=== PATIENT | female | born 1985 | race Caucasian/White ===

== ENCOUNTER 2018-03-24 12:48 | Emergency (ER) | payer BC, OTHER ==
--- OUTSIDE RECORDS SUMMARY | 2018-03-24 12:53 | XMS REPORT ---
:1985 External Reference #:[id number] Author Organization [facility] Address [address], [address] [place] [address] Phone [phone] Care Team Providers Name Role Phone Lyndsey Rush MD Primary Care Physician Unavailable Payers Type Date Identification Numbers Payment Provider Subscriber Commercial Policy Number: [id number] [employer] Renee Holcomb PayID: [id number] [address] [place] [address] Problems Date Description Provider Status Onset: 03/02/2018 von Willebrand disorder Lyndsey Rush MD Active Onset: 03/02/2018 Obesity Lyndsey Rush MD Active Onset: 03/02/2018 Anxiety state Lyndsey Rush MD Active Onset: 03/02/2018 Moderate recurrent major depression Lyndsey Rush MD Active Family History Date Family Member(s) Problem(s) Comments Father No Current Problems Mother Hypertension Social History Type Date Description Comments Marital Status Work Status Unemployed ETOH Use Denies alcohol use Smoking Patient has never smoked Recreational Drug Use Never Used Drugs Daily Caffeine Patient consumes minimal amounts of caffeine Allergies, Adverse Reactions, Alerts Date Description Reaction Status Severity Comments 03/02/2018 Penicillin active Family members with allergy 03/02/2018 Steri-Strips active 03/02/2018 Latex active Medications Medication Date Status Form Strength Qnty SIG Indications Ordering Provider Bupropion HCL ER 03/02 Active Tablets 150mg 30tab 1 by mouth F33.1 Lyndsey (XL) ER 24HR s every day x Adri, 2 weeks then increase to 2 tabs daily Vitamin 00 Active Tablets 1 by mouth Unknown /0000 every day Medroxyprogesterone Active Tablets 10mg take 1 Unknown Acetate /0000 tablet by mouth daily for 10 days prn amenorrhoea . Vital Signs Date Vital Result Comment 03/02/2018 BP Systolic Sitting Right Arm 133 mmHg BP Diastolic Sitting Right Arm 89 mmHg Body Temperature 98.2 F Heart Rate 85 /min Respiratory Rate 16 /min Height 67 inches 5'7" Weight 286.00 lb BMI (Body Mass Index) 44.8 kg/m2 BSA (Body Surface Area) 2.35 m2 [place] body weight in kilograms 61 O2 % BldC Oximetry 99 % Results Description No Information Procedures Description No Information Plan of Care Future Appointment(s):04/12/2018 8:45 am - [facility] App[facility] Aqhkja6904/21 11:20 am - Lyndsey Rush MD at [facility] Cljjij6003/02/2018 - Lyndsey Rush MDF33.1 Major depressive disorder, recurrent, moderateNew Medication: Bupropion HCL ER (XL) 150 mgNew Labs:CBS W/Automated DiffComprehensive Metabolic PanelComments:-PHQ9 done-Advised counseling for CBT-Sertraline was not well tolerated-Concerned about weight gain with SSRI therefore will try wellbutyrin -increase from 150mg daily x 2 weeks increase to 2 tabs daily - followup in 6 fehtsP78.9 Anxiety disorder, unspecifiedNew Labs:CBS W/Automated DiffComprehensive Metabolic PanelComments:-trial of bupropion XL 150mg daily-&gt ;if tolerated increase to 2 tabs daily-Followup in 6 weeks-Given list of counselors for CBT-Try meditation and yfhuvelppxoS98.09 Other obesity due to excess caloriesNew Labs:LDL Cholesterol ProfileThyroid Stim HormoneFree O6Phxphyj D,25-HydroxyComments:-Encouraged exercise, healthy eating-Avoiding SSRIs due to concern for weight gain-Check baseline blood workD68.0 Von Willebrand's diseaseNew Labs:CBS W/Automated DiffComprehensive Metabolic PanelLDL Cholesterol ProfileComments:-followup with Dr. Garcesments:fasting blood work in 4 weeksfollowup in 6 weeksFollow up:fasting blood work prior f/u in 6 weeks
[2018-03-24 12:54] VITALS: BP 160/85
--- NOTE | 2018-03-24 12:55 | UC ---
Skin Complaint HPI - HPI Summary HPI Summary: 32 yo female presents with diffuse hives since yesterday. She tells me that 2 nights ago she ate a leftover gumbo that her ordered from [employer]. Overnight she developed diffuse hives and itching. She took oral benadryl, which did not help. Her hives have persisted and she feels her throat might be scratchy today - thus prompting her visit to . She denies fever, chills, difficulty swallow/breathing, SOB, or chest pain. - History of Current Complaint Chief Complaint: UCAllergicReaction Time Seen by Provider: 03/24/18 12:54 Stated Complaint: ALLERGIC REACTION Hx Obtained From: Patient Hx Last Menstrual Period: 03/14/18 Onset/Duration: Sudden Onset Onset Severity: Moderate Current Severity: Moderate Pain Intensity: 7 Pain Scale Used: 0-10 Numeric - Allergy/Home Medications Allergies/Adverse Reactions: Allergies Allergy/AdvReac Type Severity Reaction Status Date / Time latex Allergy Rash Verified 03/24/18 12:55 Penicillins Allergy Rash Verified 03/24/18 12:55 Home Medications: Home Medications buPROPion HCl [Wellbutrin Sr] 100 mg PO DAILY 03/24/18 [History Confirmed ] Review of Systems Constitutional: Negative Skin: Other - Diffuse hives ENT: Negative Respiratory: Negative Cardiovascular: Negative Gastrointestinal: Negative Neurovascular: Negative Neurological: Negative Psychological: Negative All Other Systems Reviewed And Are Negative: Yes PMH/Surg Hx/FS Hx/Imm Hx Psychological History: Anxiety, Depression - Surgical History Surgical History: Yes Surgery Procedure, Year, and Place: D&C 03/2013, tonsillectomy as a child, d&c to remove polups and a tumur to ovary and endometriosis - Family History Known Family History: Positive: Hypertension - Social History Occupation: Employed Full-time Lives: With Family Alcohol Use: None Substance Use Type: None Smoking Status (MU): Never Smoked Tobacco Physical Exam - Summary Physical Exam Summary: GENERAL: NAD. WDWN. No pain distress. SKIN: Diffuse urticaria on abdomen, chest, and b/l arms. No open wounds, streaking, or drainage. HEENT: Head: AT/NC Eyes: EOM intact. Conjunctiva clear without inflammation or discharge. Throat: Posterior oropharynx without exudates, erythema, or tonsillar enlargement. Uvula midline. NECK: Supple. No edema. CHEST: CTAB. No r/r/w. No accessory muscle use. Breathing comfortably and in no distress. CV: RRR. Without m/r/g. Pulses intact. Cap refill <2seconds NEURO: Alert. PSYCH: Age appropriate behavior. Triage Information Reviewed: Yes Vital Signs: Initial Vital Signs Temp 98 F 03/24/18 12:52 Pulse 95 03/24/18 12:52 Resp 16 03/24/18 12:52 BP 160/85 03/24/18 12:52 Pulse Ox 98 03/24/18 12:52 Vital Signs Reviewed: Yes Course/Dx - Course Course Of Treatment: Urticaria due to allergic reaction. 125mg solumedrol given in clinic. Rx for prednisone and f/u or go to ED if symptoms persist or worsen. - Diagnoses Provider Diagnoses: urticaria Discharge - Sign-Out/Discharge Documenting (check all that apply): Patient Departure All imaging exams completed and their final reports reviewed: No Studies - Discharge Plan Condition: Stable Disposition: HOME Prescriptions: diPHENhydraMINE 2% CREAM(NF) [Benadryl 2% CREAM (NF)] 1 applic TOPICAL BID PRN # 1 tube PRN Reason: Itching Hydrocortisone 1% CREAM(NF) 1 applic TOPICAL DAILY PRN #1 tube PRN Reason: Itching predniSONE TAB* [Deltasone 20 MG TAB*] 20 mg PO DAILY #12 tab Patient Education Materials: Urticaria (ED), General Allergic Reaction (ED) Referrals: No Primary Care Phys,NOPCP [Primary Care Provider] - Additional Instructions: If you develop a fever, shortness of breath, chest pain, new or worsening symptoms - please call your PCP or go to the ED. Your blood pressure was high at todays visit. Please see your primary provider within 4 weeks for recheck and re-evaluation. 1) If your symptoms worsen or if you develop shortness of breath, chest pain, face swelling, eye swelling, or difficulty breathing - please call 911 or go to the ER 2) Do not use the hydrocortisone cream on your face or genital region 3) Please start the PREDNISONE tablets tomorrow taking 60mg for 2 days then 40mg for 2 days then 20mg for 2 days - Billing Disposition and Condition Condition: STABLE Disposition: Home
[2018-03-24] MEDS ORDERED: methylPREDNISolone 125 MG* 2 ML VIAL IM ONE (13:05)
== END 2018-03-24 13:28 | disposition home or self-care (01) ==
LOC: UCEAST 12:48
DX: L50.9 Urticaria, unspecified (principal); Z88.0 Allergy status to penicillin; Z91.040 Latex allergy status
CPT/HCPCS: 96372; 99212; G0463; J2930

== ENCOUNTER → 2018-09-02 03:28 | Emergency (ER) | payer OTHER ==
[~2018-09-02 03:28] MED LIST: Lactated Ringers 1000 ML Bag* 1,000 ML IV SCH; Metoclopramide IV* 5 MG/ML 2 ML VIAL IV SLOW PU ONE
--- NOTE | 2018-09-02 04:15 | ED ---
GI/ HPI - HPI Summary HPI Summary: This patient is a 32 year old female presenting to [facility] accompanied by with a chief complaint of nausea and vomiting since 2129 yesterday. Patient states that she thinks that it may be something that she ate. Patient made corned beef, which also caused her to be sick. However, her husbands symptoms resolved quickly while hers has persisted to the point where she cannot sleep. Patient is 23-24 weeks and after calling her OBGYN, was instructed to come to the ED. The pain is rated 2/10 in severity. Symptoms aggravated by nothing. Symptoms alleviated by nothing. Patient denies diarrhea - History of Current Complaint Chief Complaint: EDNauseaVomitDiarrh Time Seen by Provider: 09/02/18 04:03 Stated Complaint: VOMITING/23 WEEKS PREG Hx Obtained From: Patient Hx Last Menstrual Period: 03/14/18 Onset/Duration: Started Hours Ago, Still Present Timing: Constant Severity: Moderate Pain Intensity: 2 Location of Pain: Diffuse Associated Signs and Symptoms: Positive: Nausea. Negative: Diarrhea Aggravating Factor(s): Nothing Alleviating Factor(s): Nothing - Allergy/Home Medications Allergies/Adverse Reactions: Allergies Allergy/AdvReac Type Severity Reaction Status Date / Time latex Allergy Rash Verified 09/02/18 03:31 Penicillins Allergy Rash Verified 09/02/18 03:31 Home Medications: Home Medications Pnv No.95/Ferrous Fum/Folic AC [ Vitamin & Minera 28-0.8 mg] 1 tab PO DAILY 09/02/18 [History Confirmed 09/02/18] PMH/Surg Hx/FS Hx/Imm Hx Previously Healthy: No Endocrine/Hematology History: Reports: Other Endocrine/Hematological Disorders - Metabolic syndrome Denies: Hx Diabetes, Hx Thyroid Disease Cardiovascular History: Denies: Hx Hypertension Respiratory History: Reports: Hx Asthma - WITH SICKNESS Denies: Hx Chronic Obstructive Pulmonary Disease (COPD) GI History: Denies: Hx Ulcer Neurological History: Reports: Hx Headaches - hemiplegic headaches, Hx Migraine , Other Neuro Impairments/Disorders - HX OF MIGRAINES - Surgical History Surgery Procedure, Year, and Place: D&C 03/2013, tonsillectomy as a child, d&c to remove polups and a tumur to ovary and endometriosis Infectious Disease History: No Infectious Disease History: Denies: Hx Hepatitis, Hx Human Immunodeficiency Virus (HIV), Traveled Outside the [place] in Last 30 Days - Family History Known Family History: Positive: Hypertension - Social History Lives: With Family Alcohol Use: None Hx Substance Use: No Substance Use Type: Reports: None Hx Tobacco Use: No Smoking Status (MU): Never Smoked Tobacco Review of Systems Negative: Fever Positive: Vomiting, Nausea. Negative: Diarrhea All Other Systems Reviewed And Are Negative: Yes Physical Exam - Summary Physical Exam Summary: VITAL SIGNS: Reviewed. GENERAL: Patient is a well-developed and nourished female who is lying comfortable in the stretcher. Patient is not in any acute respiratory distress. HEAD AND FACE: No signs of trauma. No ecchymosis, hematomas or skull depressions. No sinus tenderness. EYES: PERRLA, EOMI x 2, No injected conjunctiva, no nystagmus. EARS: Hearing grossly intact. Ear canals and tympanic membranes are within normal limits. MOUTH: Oropharynx within normal limits. NECK: Supple, trachea is midline, no adenopathy, no JVD, no carotid bruit, no c- spine tenderness, neck with full ROM. CHEST: Symmetric, no tenderness at palpation LUNGS: Clear to auscultation bilaterally. No wheezing or crackles. CVS: Regular rate and rhythm, S1 and S2 present, no murmurs or gallops appreciated. ABDOMEN: Soft, non-tender. Bowel sounds are normal. Fundal level is 24 weeks. EXTREMITIES: FROM in all major joints, no edema, no cyanosis or clubbing. NEURO: Alert and oriented x 3. No acute neurological deficits. Speech is normal and follows commands. SKIN: Dry and warm Triage Information Reviewed: Yes Vital Signs On Initial Exam: Initial Vitals Temp Pulse Resp BP Pulse Ox 97.8 F 103 18 136/91 98 09/02/18 03:29 09/02/18 03:29 09/02/18 03:29 09/02/18 03:29 09/02/18 03:29 Vital Signs Reviewed: Yes Diagnostics - Vital Signs Vital Signs Temp Pulse Resp BP Pulse Ox 09/02/18 03:29 97.8 F 103 18 136/91 98 - Laboratory Result Diagrams: 09/02/18 04:27 09/02/18 04:28 Lab Statement: Any lab studies that have been ordered have been reviewed, and results considered in the medical decision making process. Re-Evaluation - Re-Evaluation First Eval Re-Evaluation Time: 06:17 Change: Improved Comment: Patient feels much better and is ready to be discharged. GIGU Course/Dx - Course Course Of Treatment: This patient is a 32 year old female presenting to [facility] accompanied by with a chief complaint of nausea and vomiting since 2129 yesterday. Patient states that she thinks that it may be something that she ate. Patient made corned beef, which also caused her to be sick. However , her husbands symptoms resolved quickly while hers has persisted to the point where she cannot sleep. Patient is 23-24 weeks and after calling her OBGYN, was instructed to come to the ED. Bloodwork Obtained. In the ED course the patient was given Lactated Ringer bolus IV, Paolo. Re-eval at 0617, patient is feeling better. Patient will be discharged with a dx of nausea and vomiting while . Patient is advised to follow up with PCP in 2 days. The patient is agreeable with this plan. - Diagnoses Provider Diagnoses: Nausea and vomiting during Discharge - Sign-Out/Discharge Documenting (check all that apply): Patient Departure Patient Received Moderate/Deep Sedation with Procedure: No - Discharge Plan Condition: Stable Disposition: HOME Prescriptions: Metoclopramide TAB* [Reglan TAB*] 10 mg PO Q6H PRN #20 tab PRN Reason: Nausea/Vomiting Patient Education Materials: Nausea and Vomiting in (ED) Referrals: No Primary Care Phys,NOPCP [Primary Care Provider] - 2 Days Additional Instructions: Return to ED for any new or worsening symptoms. - Billing Disposition and Condition Condition: STABLE Disposition: Home - Attestation Statements Document Initiated by Isaac: Yes Documenting Scribe: Justin Esquivel Provider For Whom Isaac is Documenting (Include Credential): Matt Gonzales MD Scribe Attestation: Justin Cummings, scribed for Matt Gonzales MD on 09/02/18 at 0643. Scribe Documentation Reviewed: Yes Provider Attestation: The documentation as recorded by the Justin currie accurately reflects the service I personally performed and the decisions made by me, Matt Gonzales MD Status of Scribe Document: Viewed
[2018-09-02 04:36] LABS: ABS Basophils 0 10^3/ul (0-0.2); ABS Eosinophils 0 10^3/ul (0-0.6); ABS Lymphocytes 0.8 10^3/ul (1.0-4.8); ABS Monocytes 0.6 10^3/ul (0-0.8); ABS Neutrophils 11.3 10^3/ul (1.5-7.7); ABS Nucleated RBC 0 10^3/ul; Eosinophil % 0.1 %; Hematocrit 39 % (35-47); Hemoglobin 12.9 g/dl (12.0-16.0); Lymphocyte % 6.6 %; Mean Corpuscular HGB Conc 33 g/dl (31-36); Mean Corpuscular Hemoglobin 28 pg (27-31); Mean Corpuscular Volume 86 fL (80-97); Mean Platelet Volume 6.7 fL (7.4-10.4); Nucleated Red Blood Cells % 0; Platelet Count 332 10^3/ul (150-450); Red Blood Count 4.56 10^6/ul (4.00-5.40); Red Cell Distribution Width 15 % (10.5-15); White Blood Count 12.7 10^3/ul (3.5-10.8)
[2018-09-02 04:52] LABS: Albumin 3.6 g/dL (3.2-5.2); Albumin/Globulin Ratio 1.1 (1-3); BUN/Creatinine Ratio 28.1 (8-20); C Reactive Protein 27.51 mg/L (<8.01); Calcium 8.9 mg/dL (8.6-10.3); EGFR African American 130.1 (>60); EGFR Non-African American 107.5 (>60); Globulin 3.2 g/dL (2-4); Total Bilirubin 0.5 mg/dL (0.2-1.0); Total Protein 6.8 g/dL (6.4-8.9)
[2018-09-02 06:26] VITALS: BP 144/83
== END | disposition home or self-care (01) ==
LOC: ED 03:28
DX: O21.2 Late vomiting of pregnancy (principal); Z3A.23 23 weeks gestation of pregnancy; Z88.0 Allergy status to penicillin; Z91.040 Latex allergy status
CPT/HCPCS: 36415; 80053; 82150; 83690; 85025; 86140; 96374; 99283; J2765

== ENCOUNTER 2018-12-22 12:04 | Inpatient (IN) | payer OTHER ==
[2018-12-22] MEDS ORDERED: Buffered Lidocaine 1% SYRIN* 1 ML/SYRINGE INTRADERM ONE (12:57)
[2018-12-22] MEDS ORDERED: Lactated Ringers 1000 ML Bag* 1,000 ML IV SCH ×2 (13:00→23:45)
[2018-12-22 13:36] LABS: ABS Basophils 0.1 10^3/ul (0-0.2); ABS Lymphocytes 2.3 10^3/ul (1.0-4.8); ABS Monocytes 0.8 10^3/ul (0-0.8); ABS Neutrophils 5.8 10^3/ul (1.5-7.7); Eosinophil % 0.4 %; Hematocrit 36 % (35-47); Hemoglobin 12.2 g/dL (12.0-16.0); Lymphocyte % 25.8 %; Mean Corpuscular HGB Conc 34 g/dL (31-36); Mean Corpuscular Hemoglobin 29 pg (27-31); Mean Corpuscular Volume 85 fL (80-97); Mean Platelet Volume 7.9 fL (7.4-10.4); Platelet Count 298 10^3/uL (150-450); Red Blood Count 4.21 10^6 /uL (3.70-4.87); Red Cell Distribution Width 15 % (10-15); White Blood Count 8.9 10^3/uL (3.5-10.8)
[2018-12-22] MEDS: Lactated Ringers 1000 ML Bag* 1,000 ML IV ONE (13:48)
[2018-12-22] MEDS: Penicillin G Potassium IV* 5,000,000 UNITS in NS 0.9% 100 ML* 100 ML IVPB ONE ×2 (13:55→13:56)
[2018-12-22 14:41] LABS: Albumin 3.2 g/dL (3.2-5.2); Calcium 8.9 mg/dL (8.6-10.3); Potassium 4.3 mmol/L (3.5-5.0); Total Bilirubin 0.4 mg/dL (0.2-1.0)
[2018-12-22 14:47] LABS: BUN/Creatinine Ratio 18.3 (8-20); EGFR African American 114.7 (>60); EGFR Non-African American 94.8 (>60); Globulin 3.1 g/dL (2-4); Total Protein 6.3 g/dL (6.4-8.9); Uric Acid 4.7 mg/dL (2.3-6.6)
--- NOTE | 2018-12-22 17:33 | HP ---
General Information - Reason for Visit 33yo G1 at 39+0 presents for induction of labor for multiple comorbidities including GDMA1, CHTN (no meds), and morbid obesity (BMI >45). Pt without complaints, feels well. Cx yesterday 2cm/70% and membranes swept. - General Information Maternal Age: 33 Grav: 1 Para: 0 SAB: 0 IEA: 0 Estimated Due Date: 12/29/18 Gestational Age in Weeks/Days: 39+0 Maternal Blood Type and Rh: O Positive - Results this Serology/RPR Result: Non-Reactive Rubella Result: Non-Immune HBsAg Result: Negative HIV Result: Negative GBS Culture Result: Positive Past Medical History Delivery History: See Records - G1 Pertinent Past Medical History: See Records - morbid obesity, GDMA1, CHTN, poss von Willebrand's (normal labs recently), endometriosis Pertinent Past Surgical History: See Records - tonsils, laparoscopy, hysteroscopy - Antepartal Records Antepartal Records: Reviewed, Complicated by: - see above Review of Systems Constitutional: Comfortable CV Complaint: No Respiratory: Shortness of Breath: No Gastrointestinal: No Nausea/Vomiting Genitourinary: Bleeding - scant since exam, No Dysuria, No Leaking Fluid Musculoskeletal: Contractions - irreg, mild Movement: Normal Exam Allergies/Adverse Reactions: Allergies latex Allergy (Verified 09/02/18 03:31) Rash mild HTN, afebrile Lab Values - Entire Visit: Laboratory Tests 12/22/18 12/22/18 12/22/18 13:20 13:20 13:55 WBC 8.9 RBC 4.21 Hgb 12.2 Hct 36 MCV 85 MCH 29 MCHC 34 RDW 15 Plt Count 298 MPV 7.9 Neut % (Auto) 64.7 Lymph % (Auto) 25.8 Shelby % (Auto) 8.5 Eos % (Auto) 0.4 Baso % (Auto) 0.6 Absolute Neuts (auto) 5.8 Absolute Lymphs (auto) 2.3 Absolute Monos (auto) 0.8 Absolute Eos (auto) 0.0 Absolute Basos (auto) 0.1 Absolute Nucleated RBC 0.0 Nucleated RBC % 0.0 Sodium 136 Potassium 4.3 Chloride 106 Carbon Dioxide 20 L Anion Gap 10 BUN 13 Creatinine 0.71 Est GFR ( Amer) 114.7 Est GFR (Non-Af Amer) 94.8 BUN/Creatinine Ratio 18.3 Glucose 97 Uric Acid 4.7 Calcium 8.9 Total Bilirubin 0.40 AST 12 L ALT 7 Alkaline Phosphatase 104 Total Protein 6.3 L Albumin 3.2 Globulin 3.1 Albumin/Globulin Ratio 1.0 Blood Type O Positive Antibody Screen Negative - Measurements Height: 5 ft 7 in Weight: 319 lb Weight in lbs: 319.925444 Body Mass Index (BMI): 49.9 Pre- Weight: 295 lb Weight Gained This : 24 lbs and 0 ozs - Exam Breast: Breast Exam Deferred Heart: Normal Rhythm/Heart Sounds HEENT: No Significant Findings Lungs: Clear Bilaterally Rectal: Rectal Exam Deferred - Abdominal Exam Abdomen Exam: Non-Tender - , very obese - Ultrasound/Biophysical Profile Ultrasound Status: Not Done Targeted Exam Findings Estimated Weight: 8lb 4oz Cervical Exam: 3cm Effacement: 60% Station: -2 Presenting Part: Vertex Membrane Status: Intact EFM Findings - External Monitor Findings Baseline Heart Rate: 140 External Monitor Findings: Accelerations Present, No Pattern of Variable or Late Decelerations, Variability Moderate, Baseline Stable Contractions: Irregular, Mild Contraction Frequency: About Q3-6 Assessment/Plan - Assessment 39 wks with CHTN (mild), GDMA1, morbid obesity. Growth ultrasounds have showed fetus large for dates, last week 78%ile (7lb 15oz ). Cervix getting favorable already. Will plan ROM after antibiotics have been started for GBS. Pitocin as needed. - Obstetrical Risk Factors Obstetrical Risk Factors: GBS Positive, Obesity, Chronic Hypertension, Gestational Diabetes - Plan Plan: Induction, Admit - Anticipate Vaginal Delivery - Date/Time of Admission Date of Admission: 12/22/18 Time of Admission: 12:30
[2018-12-22] MEDS: Penicillin G Potassium IV* 2,500,000 UNITS in NS 0.9% 100 ML* 100 ML IVPB SCH ×2 (17:58→22:00)
[2018-12-22] MEDS ORDERED: OBEPIDURAL* 250 ML EPIDURAL ONE (20:52)
[2018-12-22] MEDS ORDERED: Lactated Ringers 1000 ML Bag* 500 ML IV PRN ×2 (23:36)
[2018-12-22] MEDS ORDERED: Famotidine TAB* 20 MG PO PRN (23:36)
[2018-12-22] MEDS ORDERED: Sodium Citrate/Citric Acid* 15 ML UDC PO PRN (23:36)
[2018-12-22] MEDS ORDERED: Phenylephrine 40 MCG/ML SYRINGE IV PUSH PRN ×2 (23:36)
[2018-12-22] MEDS ORDERED: Lactated Ringers 1000 ML Bag* 1,000 ML IV ONE (23:36)
[2018-12-22] MEDS ORDERED: OBEPIDURAL* 250 ML EPIDURAL SCH (23:45)
[2018-12-23] MEDS ORDERED: Oxytocin in LR* 20 UNITS/1,000 ML BAG IVPB SCH (01:00)
[2018-12-23] MEDS: Penicillin G Potassium IV* 2,500,000 UNITS in NS 0.9% 100 ML* 100 ML IVPB SCH ×2 (02:00→05:48)
[2018-12-23] MEDS ORDERED: Labetalol IV* 5 MG/ML 20 ML VIAL IV PUSH ONE (02:52)
[2018-12-23] MEDS ORDERED: ceFOXitin 2 GM IVPREMIX* 2 GM/50 ML BAG IVPB ONE (06:52)
[2018-12-23] MEDS ORDERED: ceFOXitin 2 GM IVPREMIX* 2 GM/50 ML BAG ONE (06:56)
--- NOTE | 2018-12-23 06:58 | PN ---
Progress Note - Progress Note Date of Service: 12/23/18 Note: Pt reached fully dilated at about 0330, started pushing about an hour later. She has since pushed with very good effort, but reports exhaustion. She had just reached about +2 station. We discussed the option of vacuum with possible risk of shoulder dystocia and failure to deliver. After discussion, pt reports she is unable to push any longer and declines vacuum, preferring C/S at this time. We discussed delivery at length. We reviewed the risks including hemorrhage, transfusion, infection, organ injury , anesthesia complications, DVT, and even . All questions were discussed and consent signed.
[2018-12-23] MEDS ORDERED: Lidocaine 2% EPI 1:200000 MPF*10-20 ML VIAL ONE (07:15)
[2018-12-23] MEDS ORDERED: OXYTOCIN* 10 UNITS/ML 1 ML VIAL ONE (07:50)
[2018-12-23] MEDS ORDERED: Ketorolac INJ* 30 MG/ML 1 ML VIAL ONE (08:07)
[2018-12-23] MEDS ORDERED: Ondansetron INJ* 2 MG/ML VIAL ONE (08:07)
[2018-12-23] MEDS ORDERED: Phenylephrine 40 MCG/ML SYRINGE ONE (08:07)
[2018-12-23] MEDS ORDERED: Morphine PF AMP (0.5MG/ML)* 5 MG/10 ML AMP ONE (08:13)
[2018-12-23] MEDS ORDERED: Levalbuterol 0.63MG/3ML NEB* UNIT OF USE INH PRN (08:24)
[2018-12-23] MEDS ORDERED: Scopolamine 1.5 mg* PATCH TRANSDERM PRN (08:24)
[2018-12-23] MEDS ORDERED: fentaNYL* 50 MCG/ML 2 ML VIAL (100 MCG VIAL) IV PRN (08:24)
[2018-12-23] MEDS ORDERED: Naloxone* 0.4 MG/ML 1 ML VIAL IV PRN ×2 (08:24→08:26)
[2018-12-23] MEDS ORDERED: diPHENhydraMINE IV* 50 MG/ML 1 ml VIAL (BENADRYL) IV PRN (08:26)
[2018-12-23] MEDS ORDERED: DiMENhydriNATE IV* 50 MG/ML VIAL IV PUSH PRN (08:26)
[2018-12-23] MEDS ORDERED: Ondansetron INJ* 2 MG/ML VIAL IV PRN (08:26)
[2018-12-23] MEDS ORDERED: Nalbuphine* 10 MG/ML 1 ML VIAL IV PRN (08:26)
[2018-12-23] MEDS ORDERED: PROCHLORPERAZINE INJ 5 MG/ML 2 ML VIAL IV PRN (08:26)
[2018-12-23] MEDS ORDERED: HYDROcodone/ACETAMIN 5-325 MG* 1 TAB PO PRN ×2 (08:26)
[2018-12-23] MEDS ORDERED: Witch Hazel PAD* JAR TOPICAL PRN (09:03)
--- NOTE | 2018-12-23 09:42 | OP ---
DATE OF OPERATION: 12/23/18 - ROOM #104 DATE OF : 85 SURGEON: Brad Benitez MD. STUDENT FINANCIAL AID MANAGER: Kelton Whitney MD. ANESTHESIOLOGIST: Dr. Morelos. ANESTHESIA: Epidural. PRE-OP DIAGNOSES: A 39-week gestation with chronic hypertension, gestational diabetes mellitus, morbid obesity, and arrest of descent. POST-OP DIAGNOSES: A 39-week gestation with chronic hypertension, gestational diabetes mellitus, morbid obesity, arrest of descent, and macrosomia. OPERATIVE PROCEDURE: Primary low transverse section. ESTIMATED BLOOD LOSS: 800 cc. URINE OUTPUT: 200 cc. IV FLUIDS: 1200 cc lactated Ringer's. INDICATIONS: This patient is a 33-year-old 1, para 0 who was admitted at 39 weeks gestation for induction of labor due to multiple complications including morbid obesity, gestational diabetes, and chronic hypertension. The patient actually presented with signs of early labor and at about 3 cm dilated. She was ruptured productive of clear fluid. She then progressed fairly well to about 6 cm, at which point she required an IUPC as she was not having cervical change. Additional Pitocin made the contractions adequate and she progressed to completely dilated. She pushed for over 2 hours , at which point, the presenting head reached about +2 station; however, the patient was extremely exhausted and declined any operative assistance. This was considered very reasonable considering the was known to be fairly large and there could be the potential for severe shoulder dystocia. She was extensively counseled for the surgery and consent was signed. FINDINGS: Normal-appearing uterus, fallopian tubes, and ovaries. Delivery was productive of a 10-pound 8-ounce male infant with Apgars of 9 and 9. Time of delivery was 8:01 a.m. An Jamar retractor was used for the procedure. COMPLICATIONS: None. DESCRIPTION OF PROCEDURE: The risks, benefits, and alternatives were described to the patient and informed consent was obtained. The patient was taken to the operating room with IV running where epidural anesthesia was induced and found to be adequate. The patient was prepped and draped in the normal sterile fashion in the dorsal supine position with leftward tilt. A Pfannenstiel skin incision was made with a scalpel and this was carried down to the underlying fascia sharply. The fascia was then scored in the midline with the scalpel. The incision was extended using Cleveland scissors. The rectus muscles were dissected off the rectus fascia using blunt and sharp dissection. The rectus muscles were in the midline bluntly. The peritoneum was also entered bluntly. A bladder blade was placed. A bladder flap was created sharply using Metzenbaum scissors. A low transverse uterine incision was made with the scalpel. This was carried down to the amniotic cavity which was productive of clear fluid. The incision was extended with blunt traction. The head was elevated to the level of the incision without difficulty and delivered through the incision. With fundal pressure, the shoulders and body delivered without difficulty. The had an excellent tone and cried immediately on delivery. The cord was doubly clamped and cut. The infant was then handed to the awaiting slack cooper. Cord blood was collected. The placenta then delivered with manual extraction. The uterus was then exteriorized and cleared of all clots and debris. Uterine incision was reapproximated using 0 Polysorb in a running-locked fashion. A second layer of imbricating sutures of 0 Polysorb was also placed with good hemostasis. The posterior cul-de-sac was irrigated with saline. The uterus was then returned to the abdomen, and the incision was reinspected and noted to be hemostatic. The peritoneum was closed with 2-0 chromic in a running fashion. The fascia was closed with 0 Polysorb in a running fashion. Subcutaneous tissues were reapproximated using 2-0 chromic and interrupted sutures. The skin was then closed with 4-0 Monocryl in a subcuticular stitch. Mastisol and Steri-Strips were placed over the incision which was then covered with a sterile bandage. The patient tolerated the procedure well. Sponge, lap, and needle counts were correct x2. [id number]/[facility] #: [id number] [facility]
[2018-12-23] MEDS ORDERED: Lactated Ringers 1000 ML Bag* 1,000 ML IV SCH (10:00)
[2018-12-23] MEDS ORDERED: Acetaminophen TAB* 325 MG PO SCH (11:00)
[2018-12-23] MEDS: Docusate CAP* 100 MG PO SCH ×2 (14:42→21:50)
[2018-12-23] MEDS: Simethicone TAB* 80 MG TAB.CHEW PO SCH ×2 (18:43→21:50)
--- NOTE | 2018-12-23 20:45 | PTEDU ---
Patient Name: RICHY WHITLOCK RICHY WHITLOCK selected video: BBOB: Nurturing Your Gorgeous &Growing Baby by to view o n 12/23/2018 at 8:44:42 PM [id number]
[2018-12-24] MEDS ORDERED: oxyCODONE/Acetamin 5/325 MG* TAB PO PRN ×2 (00:22)
[2018-12-24] MEDS: Acetaminophen TAB* 325 MG PO PRN ×2 (02:23→18:27)
[2018-12-24 06:23] LABS: ABS Lymphocytes 3.5 10^3/ul (1.0-4.8); ABS Neutrophils 8.4 10^3/ul (1.5-7.7); Eosinophil % 0.3 %; Hematocrit 30 % (35-47); Lymphocyte % 27.2 %; Mean Corpuscular HGB Conc 33 g/dL (31-36); Mean Corpuscular Hemoglobin 29 pg (27-31); Mean Corpuscular Volume 87 fL (80-97); Mean Platelet Volume 7.5 fL (7.4-10.4); Platelet Count 253 10^3/uL (150-450); Red Blood Count 3.45 10^6 /uL (3.70-4.87); Red Cell Distribution Width 15 % (10-15)
[2018-12-24] MEDS: Ibuprofen TAB* 600 MG PO PRN ×3 (06:39→21:19)
[2018-12-24] MEDS: Ferrous Gluconate TAB* 324 MG TAB PO SCH ×2 (09:26→23:23)
[2018-12-24] MEDS: Simethicone TAB* 80 MG TAB.CHEW PO SCH ×4 (09:54→21:20)
[2018-12-24] MEDS: Docusate CAP* 100 MG PO SCH ×3 (09:54→21:20)
[2018-12-25] MEDS: Acetaminophen TAB* 325 MG PO PRN ×5 (00:26→22:04)
[2018-12-25] MEDS: Ibuprofen TAB* 600 MG PO PRN ×3 (06:00→22:04)
[2018-12-25] MEDS: Docusate CAP* 100 MG PO SCH ×3 (07:57→22:04)
[2018-12-25] MEDS: Simethicone TAB* 80 MG TAB.CHEW PO SCH ×4 (07:58→22:04)
--- NOTE | 2018-12-25 10:54 | PTEDU ---
Patient Name: RICHY WHITLOCK RICHY WHITLOCK selected video: Follow Me Mum: The Rodney to Successful to view on 12/26/19 19 at 10:53:48 AM [id number]
[2018-12-25] MEDS: Ferrous Gluconate TAB* 324 MG TAB PO SCH (11:31)
[2018-12-26] MEDS: Acetaminophen TAB* 325 MG PO PRN ×2 (02:19→08:00)
[2018-12-26] MEDS: Ferrous Gluconate TAB* 324 MG TAB PO SCH (02:35)
[2018-12-26] MEDS: Ibuprofen TAB* 600 MG PO PRN (07:58)
[2018-12-26] MEDS: Docusate CAP* 100 MG PO SCH (08:01)
[2018-12-26] MEDS: Simethicone TAB* 80 MG TAB.CHEW PO SCH (08:01)
[2018-12-26] MEDS ORDERED: Scopolamine PATCH Remove* 1 NOTE MISC PATCH OFF ONE (08:25)
[2018-12-26 10:09] VITALS: BP 135/71
[2018-12-26] MEDS ORDERED: Measles, Mumps,Rubella VACC* 0.5 ML/VIAL SUBCUT ONE (11:57)
== END 2018-12-26 13:50 | disposition home or self-care (01) | DRG 540 ==
LOC: MCHOBOUT 12:04 → MCHOB 13:04
PROVIDERS: ADMIT Obstetrics & Gynecology; ATTEND Obstetrics & Gynecology
PROC: 3E033VJ Introduction of Other Hormone into Peripheral Vein, Percutaneous Approach (ICD-10-PCS; 2018-12-23)
PROC: 10907ZC Drainage of Amniotic Fluid, Therapeutic from Products of Conception, Via Natural or Artificial Opening (ICD-10-PCS; 2018-12-23)
PROC: 10D00Z1 Extraction of Products of Conception, Low, Open Approach (ICD-10-PCS; principal; 2018-12-23 07:34)
DX: O32.4XX0 Maternal care for high head at term, not applicable or unspecified (principal); O10.92 Unspecified pre-existing hypertension complicating childbirth; O24.429 Gestational diabetes mellitus in childbirth, unspecified control; O99.214 Obesity complicating childbirth; E66.01 Morbid (severe) obesity due to excess calories; O36.63X0 Maternal care for excessive fetal growth, third trimester, not applicable or unspecified; O99.344 Other mental disorders complicating childbirth; F32.9 Major depressive disorder, single episode, unspecified; Z3A.39 39 weeks gestation of pregnancy; Z37.0 Single live birth
CPT/HCPCS: 36415; 80053; 84550; 85025; 86850; 86900; 86901; 90707; A9270-GY; J0694; J1885; J2405; J2540; J2590